=== PATIENT | female | born 1975 | race Caucasian/White ===

== ENCOUNTER 2017-02-25 06:37 | Day surgery (SDC) | payer OTHER ==
[2017-02-24 14:50] LABS: CHLORIDE,CL 104 mmol/L (98-110); SODIUM,NA 139 mmol/L (136-146)
[~2017-02-25 06:37] MED LIST: Sodium Chloride 0.9% 10 ML Syringe FLUSH PRN; Sodium Chloride 0.9% 2.5 ML Syringe FLUSH PRN; ceFAZolin 2 GM in Premix Bag 1 BAG IV ONE
[2017-02-25] MEDS: Lactated Ringers 1,000 ML IV SCH ×2 (06:47→10:45)
[2017-02-25] MEDS ORDERED: Propofol 200 MG/20 ML SDV ONE ×2 (07:09→09:07)
[2017-02-25] MEDS ORDERED: Midazolam 1 MG/ML 2 ML SDV ONE (07:09)
[2017-02-25] MEDS ORDERED: fentaNYL 100 MCG/2 ML SDV ONE (07:09)
[2017-02-25] MEDS ORDERED: Lidocaine 2% 5 ML SDV ONE (07:09)
[2017-02-25] MEDS ORDERED: Ondansetron 4 MG/2 ML SDV ONE ×2 (07:12→07:21)
[2017-02-25] MEDS ORDERED: Rocuronium 10 MG/ML 10 ML Syringe ONE (07:12)
[2017-02-25] MEDS ORDERED: Neostigmine Methylsulfate 1 MG/ML 5 ML Syringe ONE (07:12)
[2017-02-25] MEDS ORDERED: Ketorolac 30 MG/ML SDV ONE (07:12)
[2017-02-25] MEDS ORDERED: HYDROmorphone 2 MG/ML Syringe ONE (07:23)
[2017-02-25] MEDS ORDERED: Octyl 2-Cyanoacrylate 1 Tube ONE (07:25)
[2017-02-25] MEDS ORDERED: Fluorescein 5 ML Vial ONE (07:26)
[2017-02-25] MEDS ORDERED: Scopolamine 1.5 MG Transdermal Patch TRDERM PRN (07:27)
--- NOTE | 2017-02-25 07:27 | PCM.PREANE ---
Preanesthetic Assessment - Anesthesia/Transfusion/Family Hx Anesthesia History: Prior Anesthesia Without Reaction Family History of Anesthesia Reaction: No Transfusion History: No Prior Transfusion(s) - Review of Systems General: No Symptoms Pulmonary: No Symptoms Cardiovascular: No Symptoms Gastrointestinal: No Symptoms Neurological: No Symptoms Other: Reports: None - Physical Assessment NPO Status Date: 02/24/17 O2 Sat by Pulse Oximetry: 97 Respiratory Rate: 16 Vital Signs: Last Vital Signs Temp 36.2 C 02/25/17 06:42 Pulse 70 02/25/17 06:42 Resp 16 02/25/17 06:42 BP 122/60 02/25/17 06:42 Pulse Ox 97 02/25/17 06:42 Height: 1.6 m Weight: 93.44 kg ASA Class: 2 Mental Status: Alert & Oriented x3 Airway Class: Mallampati = 2 Dentition: Reports: Normal Dentition ROM/Head Extension: Full Lungs: Clear to Auscultation, Normal Respiratory Effort Cardiovascular: Regular Rate, Regular Rhythm - Lab Values: Laboratory Last Values WBC 5.38 K/uL (4.0-11.0) 02/24/17 14:16 RBC 4.78 M/uL (4.30-5.90) 02/24/17 14:16 Hgb 14.7 g/dL (12.0-16.0) 02/24/17 14:16 Hct 43.3 % (36.0-46.0) 02/24/17 14:16 MCV 90.6 fL (80.0-98.0) 02/24/17 14:16 MCH 30.8 pg (27.0-32.0) 02/24/17 14:16 MCHC 33.9 g/dL (31.0-37.0) 02/24/17 14:16 RDW Std Deviation 43.0 fl (28.0-62.0) 02/24/17 14:16 RDW Coeff of Elisa 13 % (11.0-15.0) 02/24/17 14:16 Plt Count 336 K/uL (150-400) 02/24/17 14:16 MPV 9.60 fL (7.40-12.00) 02/24/17 14:16 Nucleated RBC % 0.0 /100WBC 02/24/17 14:16 Nucleated RBCs # 0 K/uL 02/24/17 14:16 Sodium 139 mmol/L (136-146) 02/24/17 14:16 Potassium 4.1 mmol/L (3.5-5.1) 02/24/17 14:16 Chloride 104 mmol/L (98-110) 02/24/17 14:16 Carbon Dioxide 28 mmol/L (21-31) 02/24/17 14:16 BUN 6 mg/dL (6.0-23.0) 02/24/17 14:16 Creatinine 0.7 mg/dL (0.6-1.5) 02/24/17 14:16 Est Cr Clr Drug Dosing 84.84 mL/min 02/24/17 14:16 Estimated GFR (MDRD) > 60.0 ml/min 02/24/17 14:16 Glucose 93 mg/dL (60-110) 02/24/17 14:16 Calcium 9.5 mg/dL (8.8-10.8) 02/24/17 14:16 HCG, Qual NEGATIVE (NEG) 02/24/17 14:16 Blood Type O POSITIVE 02/24/17 14:16 Antibody Screen NEGATIVE 02/24/17 14:16 - Allergies Allergies/Adverse Reactions: Allergies Allergy/AdvReac Type Severity Reaction Status Date / Time codeine Allergy Hives Verified 02/25/17 07:00 erythromycin base Allergy Nausea Verified 02/25/17 07:01 nut - unspecified Allergy Anaphylactic Verified 02/25/17 07:01 Shock Penicillins Allergy Difficulty Verified 02/25/17 07:00 Breathing venom-honey bee Allergy Nausea and Verified 02/25/17 07:01 [bee venom (honey bee)] Vomiting - Anesthesia Plan Pre-Op Medication Ordered: Other (scop) - Acknowledgements Anesthesia Type Planned: General Anesthesia Pt an Appropriate Candidate for the Planned Anesthesia: Yes Alternatives and Risks of Anesthesia Discussed w Pt/Guardian: Yes Pt/Guardian Understands and Agrees with Anesthesia Plan: Yes PreAnesthesia Questionnaire HEENT History: Other HEENT History: has problems with vertigo, wears glasses Cardiovascular History: Reports: None Respiratory History: Reports: None Gastrointestinal History: Reports: GERD Genitourinary History: Reports: UTI, Recurrent LOAD DISPATCHER History: Reports: Musculoskeletal History: Reports: Back Pain, Chronic, Other (See Below) Other Musculoskeletal History: chronic back pain Neurological History: Reports: Vertigo Psychiatric History: Reports: Anxiety, Depression Endocrine/Metabolic History: Reports: Obesity/BMI 30+ Hematologic History: Reports: None Immunologic History: Reports: None Oncologic (Cancer) History: Reports: None Dermatologic History: Reports: None - Past Surgical History Head Surgeries/Procedures: Reports: None HEENT Surgical History: Reports: Tonsillectomy GI Surgical History: Reports: Cholecystectomy Female Surgical History: Reports: Section, D&C, Tubal Ligation Neurological Surgical History: Reports: C-Spine Other Neurological Surgeries/Procedures: hx neck surgery - SUBSTANCE USE Smoking Status *Q: Current Every Day Smoker Tobacco Use Within Last Twelve Months: Cigarettes Recreational Drug Use History: No - HOME MEDS Home Medications: Home Meds Acyclovir 800 mg PO ASDIRECTED PRN 09/05/15 [History] Cyclobenzaprine HCl 5 mg PO ASDIRECTED PRN 09/05/15 [History] EPINEPHrine [Epipen 2-Brown] 1 injection SUBCUT ASDIRECTED PRN 09/05/15 [History] Meclizine HCl [Antivert] 25 mg PO ASDIRECTED PRN 09/05/15 [History] Methocarbamol 500 mg PO ASDIRECTED PRN 09/05/15 [History] Venlafaxine HCl [Venlafaxine ER] 37.5 mg PO DAILY 09/05/15 [History] - CURRENT (IN HOUSE) MEDS Current Meds: Current Medications Lactated Ringer's (Ringers, Lactated) 1,000 mls @ 125 mls/hr IV ASDIRECTED LEVY Last Admin: 02/25/17 06:47 Dose: 125 mls/hr Sodium Chloride (Saline Flush) 10 ml FLUSH ASDIRECTED PRN PRN Reason: Keep Vein Open Sodium Chloride (Saline Flush) 2.5 ml FLUSH ASDIRECTED PRN PRN Reason: Keep Vein Open Discontinued Medications Fentanyl (Sublimaze) Confirm Administered Dose 300 mcg .ROUTE .STK-MED ONE Stop: 02/25/17 07:10 Glycopyrrolate () Confirm Administered Dose 1 mg .ROUTE .STK-MED ONE Stop: 02/25/17 07:13 Hydromorphone HCl (Dilaudid) Confirm Administered Dose 2 mg .ROUTE .STK-MED ONE Stop: 02/25/17 07:24 Cefazolin Sodium/Dextrose 2 gm (/ Premix) 50 mls @ 100 mls/hr IV ONETIME ONE Stop: 02/24/17 14:19 Cefazolin Sodium/Dextrose 2 gm (/ Premix) 50 mls @ 100 mls/hr IV ONETIME ONE Stop: 02/24/17 14:19 Ketorolac Tromethamine (Toradol) Confirm Administered Dose 30 mg .ROUTE .STK- MED ONE Stop: 02/25/17 07:13 Lidocaine (Xylocaine-Mpf 2%) Confirm Administered Dose 10 ml .ROUTE .STK-MED ONE Stop: 02/25/17 07:10 Midazolam HCl (Versed 1 Mg/Ml) Confirm Administered Dose 2 mg .ROUTE .STK-MED ONE Stop: 02/25/17 07:10 Neostigmine Methylsulfate (Neostigmine) Confirm Administered Dose 5 mg .ROUTE .STK-MED ONE Stop: 02/25/17 07:13 Ondansetron HCl (Zofran) Confirm Administered Dose 4 mg .ROUTE .STK-MED ONE Stop: 02/25/17 07:13 Ondansetron HCl (Zofran) Confirm Administered Dose 4 mg .ROUTE .STK-MED ONE Stop: 02/25/17 07:22 Propofol (Diprivan 20 Ml) Confirm Administered Dose 400 mg .ROUTE .STK-MED ONE Stop: 02/25/17 07:10 Rocuronium [place] (Zemuron) Confirm Administered Dose 100 mg .ROUTE .STK-MED ONE Stop: 02/25/17 07:13
[2017-02-25] MEDS ORDERED: Furosemide 40 MG/4 ML VIAL ONE (08:52)
[2017-02-25] MEDS ORDERED: Ketorolac 30 MG/ML SDV IVPUSH ONE (09:17)
[2017-02-25] MEDS ORDERED: Ketorolac 30 MG/ML SDV IVPUSH PRN (09:17)
[2017-02-25] MEDS ORDERED: Promethazine 25 MG/ML SDV IM PRN (09:17)
[2017-02-25] MEDS ORDERED: Morphine 4 MG/ML Syringe IVPUSH PRN (09:17)
[2017-02-25] MEDS ORDERED: Morphine 2 MG/ML Syringe IVPUSH PRN (09:17)
[2017-02-25] MEDS ORDERED: Acetaminophen/oxyCODONE 325-5 MG Tab PO PRN (09:17)
[2017-02-25] MEDS ORDERED: Ondansetron 4 MG/2 ML SDV IVPUSH PRN (09:17)
--- NOTE | 2017-02-25 09:23 | PCM.OPNOTE ---
- General Post-Op/Procedure Note Date of Surgery/Procedure: 02/25/17 Operative Procedure(s): Lysis of adhesion, TLH and Cysto Pre Op Diagnosis: Bleeding Post-Op Diagnosis: Same Anesthesia Technique: General ET Tube Primary Surgeon: Neno Nolasco Associate Curator: Peri Verdugo EBL in mLs: 100 Complications: None Condition: Good
[2017-02-25] MEDS ORDERED: fentaNYL 100 MCG/2 ML SDV IVPUSH PRN (09:37)
[2017-02-25] MEDS ORDERED: HYDROmorphone 2 MG/ML Syringe IVPUSH ONE (09:37)
--- NOTE | 2017-02-25 11:40 | PCM.POSTAN ---
POST ANESTHESIA ASSESSMENT - MENTAL STATUS Mental Status: Alert, Oriented - RESPIRATORY Respiratory Status: Respiratory Rate WNL, Airway Patent, O2 Saturation Stable - CARDIOVASCULAR CV Status: Pulse Rate WNL, Blood Pressure Stable - GASTROINTESTINAL GI Status: No Symptoms - POST OP HYDRATION Hydration Status: Adequate & Stable
[2017-02-25] MEDS: Acetaminophen/oxyCODONE 325-5 MG Tab PO PRN ×3 (13:55→22:39)
--- NOTE | 2017-02-25 13:56 | OR ---
SURGEON: Neno Nolasco MD DATE OF PROCEDURE: 02/25/2017 PREOPERATIVE DIAGNOSIS: Pelvic pain, menometrorrhagia. POSTOPERATIVE DIAGNOSES: Pelvic pain, menometrorrhagia. OPERATION PERFORMED: Multiple punctures diagnostic laparoscopy, lysis of adhesions, total laparoscopic hysterectomy, and cystoscopy. LONG TERM CARE PHLEBOTOMIST: DEA Collado ANESTHESIA: General endotracheal intubation, Dr. Potter and Mr. Valdez. ESTIMATED BLOOD LOSS: Less than 100 mL. COMPLICATIONS: None. FINDINGS: Uterus about 10-week size, pelvic adhesion from her previous section, and omental adhesions to the anterior part of the uterus and the fundus of the uterus from her previous section. INDICATION TO SURGERY: Bishop refer to the admit note. PROCEDURE IN DETAIL: The patient was brought to the OR, properly identified, and after taken time- out, and adequate level of general anesthesia, the patient was placed in lithotomy position with an access to the abdomen and the vagina. The patient was prepped and draped in a sterile fashion as usual. Kidd catheter was placed in the bladder and the Rahul surgical colpotomizer manipulator placed in the uterus in the manipulation and the appropriate balloons is inflated. Once these were done, then the operation shifted abdominally. Stab wound done beneath the umbilicus. The Veress needle was placed in the peritoneal cavity and that cavity insufflated with 3-1/2 L of carbon dioxide and then using 5 mm trocar and utilizing the Visiport technique, the peritoneal cavity entered beneath the umbilicus. Once we entered the umbilicus, inspection of the abdomen, the pelvic part of the abdomen, it shows omental adhesion to the top of the uterus and left side of the uterus from her previous section, pelvic adhesions between the bladder and the lower uterine segment of the uterus. The ovary was fleshly adhered to the pelvic sidewall on both sides. I placed the patient at this time in a steep Trendelenburg and then 10-12 trocar placed in the left iliac fossa and 5 mm trocar in the right iliac fossa under direct vision. The operation started by utilizing the KI Harmonic scapula to lyse all the adhesions from the omentum to the anterior part of the uterus and the left side restoring normal anatomy and obstructed vision to the pelvis. The process of the hysterectomy started by identifying the landmark of the pelvis and the superior pedicle is coagulated and transected from both sides. Using the KI Harmonic scapula, both ovaries were preserved and the remnant of the tube from her previous tubal ligation was included with the specimen. Then, the round ligament coagulated, transected in the same manner, and then the anterior leaf was a broad ligament, dissected downward medially with blunt and sharp and hydrodissection and meticulous dissection, I was able to separate the bladder completely and dissected it away from the operative field and the lower uterine segment and the internal ring of the manipulator was easily palpable at this time. Next, the uterine vessel was identified from both sides, coagulated, transected with KI-7 Harmonic Scalpel. Once these were done, a circular incision in the vaginal mucosa at edge of the manipulator was done, detaching the cervix from its attachment to the vagina and then the cervix, uterus, and remnant of the tube was removed vaginally. After that, pneumoperitoneum re-established by placing vaginal pack in the vagina, a thorough irrigation was done at this time, and there was no oozing and no bleeding from all the pedicle. I proceeded to close the vaginal cuff laparoscopically using 2-0 PDS interrupted sutures. While we were doing that, we asked the anesthesiologist to give the patient fluorescein. Prior to that, we inspected all the pedicles. There was no oozing, no bleeding, and then the abdomen was deflated, the patient placed supine, and the Kidd catheter was removed. Cystoscopy was performed. The bladder was intact. Both ureteric orifices were seen with the dye coming from both of them. Thus, the patency of both ureters verified. Satisfied with these findings, the instrument and hardware were retrieved from the abdomen and the vagina. The multiple laparoscopic incisions closed in layer. Instrument and sponge counts were correct. The patient tolerated the procedure well, went to recovery room in a stable general condition. KATHIA / MANA /[id number]
[2017-02-26] MEDS: Acetaminophen/oxyCODONE 325-5 MG Tab PO PRN (05:41)
[2017-02-26 06:14] LABS: CHLORIDE,CL 104 mmol/L (98-110); SODIUM,NA 136 mmol/L (136-146)
[2017-02-26 08:47] VITALS: BP 117/59
--- NOTE | 2017-02-26 09:41 | PCM.SURGPN ---
- General Info Date of Service: 02/26/17 Functional Status: Reports: Pain Controlled - Review of Systems General: Reports: No Symptoms HEENT: Reports: No Symptoms Pulmonary: Reports: No Symptoms Cardiovascular: Reports: No Symptoms Gastrointestinal: Reports: No Symptoms Genitourinary: Reports: No Symptoms Musculoskeletal: Reports: No Symptoms Skin: Reports: No Symptoms Neurological: Reports: No Symptoms Psychiatric: Reports: No Symptoms - Patient Data Vitals - Most Recent: Last Vital Signs Temp 36.7 C 02/26/17 08:46 Pulse 82 02/26/17 08:46 Resp 20 02/26/17 08:46 BP 117/59 L 02/26/17 08:46 Pulse Ox 95 02/26/17 08:46 Weight - Most Recent: 93.44 kg I&O - Last 24 Hours: Intake & Output 02/25/17 02/26/17 02/26/17 22:59 06:59 14:59 Intake Total 1050 1400 Output Total 700 2600 Balance 350 -1200 Lab Results Last 24 Hrs: Laboratory Results - last 24 hr 02/26/17 02/26/17 Range/Units 05:44 05:44 WBC 6.89 (4.0-11.0) K/uL RBC 4.16 L (4.30-5.90) M/uL Hgb 12.5 (12.0-16.0) g/dL Hct 38.0 (36.0-46.0) % MCV 91.3 (80.0-98.0) fL MCH 30.0 (27.0-32.0) pg MCHC 32.9 (31.0-37.0) g/dL RDW Std Deviation 44.4 (28.0-62.0) fl RDW Coeff of Elisa 13 (11.0-15.0) % Plt Count 272 (150-400) K/uL MPV 9.60 (7.40-12.00) fL Neut % (Auto) 54.6 (48.0-80.0) % Lymph % (Auto) 33.1 (16.0-40.0) % [place] % (Auto) 9.9 (0.0-15.0) % Eos % (Auto) 2.0 (0.0-7.0) % Baso % (Auto) 0.4 (0.0-1.5) % Neut # (Auto) 3.8 (1.4-5.7) K/uL Lymph # (Auto) 2.3 (0.6-2.4) K/uL [place] # (Auto) 0.7 (0.0-0.8) K/uL Eos # (Auto) 0.1 (0.0-0.7) K/uL Baso # (Auto) 0.0 (0.0-0.1) K/uL Nucleated RBC % 0.0 /100WBC Nucleated RBCs # 0 K/uL Sodium 136 (136-146) mmol/L Potassium 4.0 (3.5-5.1) mmol/L Chloride 104 (98-110) mmol/L Carbon Dioxide 26 (21-31) mmol/L BUN 5 L (6.0-23.0) mg/dL Creatinine 0.7 (0.6-1.5) mg/dL Est Cr Clr Drug Dosing 84.84 mL/min Estimated GFR (MDRD) > 60.0 ml/min Glucose 107 (60-110) mg/dL Calcium 9.0 (8.8-10.8) mg/dL Med Orders - Current: Current Medications Lactated Ringer's (Ringers, Lactated) 1,000 mls @ 125 mls/hr IV ASDIRECTED ON LICENSE OF [facility] Last Admin: 02/25/17 10:45 Dose: 125 mls/hr Ketorolac Tromethamine (Toradol) 30 mg IVPUSH Q6H PRN PRN Reason: Pain (severe 7-10) Stop: 03/02/17 09:17 Morphine Sulfate (Morphine) 2 mg IVPUSH Q2H PRN PRN Reason: Pain (severe 7-10) Morphine Sulfate (Morphine) 4 mg IVPUSH Q2H PRN PRN Reason: Pain (severe 7-10) Ondansetron HCl (Zofran) 4 mg IVPUSH Q6H PRN PRN Reason: Nausea/Vomiting Oxycodone/Acetaminophen (Percocet 325-5 Mg) 1 tab PO Q4H PRN PRN Reason: Pain (moderate 4-6) Last Admin: 02/26/17 05:41 Dose: 1 tab Oxycodone/Acetaminophen (Percocet 325-5 Mg) 2 tab PO Q4H PRN PRN Reason: Pain (moderate 4-6) Promethazine HCl (Phenergan) 25 mg IM Q6H PRN PRN Reason: Nausea/Vomiting Scopolamine (Transderm-Scop) 1.5 mg TRDERM Q72H PRN PRN Reason: Nausea/Vomiting Last Admin: 02/25/17 07:31 Dose: 1.5 mg Sodium Chloride (Saline Flush) 10 ml FLUSH ASDIRECTED PRN PRN Reason: Keep Vein Open Sodium Chloride (Saline Flush) 2.5 ml FLUSH ASDIRECTED PRN PRN Reason: Keep Vein Open Discontinued Medications Fentanyl (Sublimaze) Confirm Administered Dose 300 mcg .ROUTE .STK-MED ONE Stop: 02/25/17 07:10 Fentanyl (Sublimaze) 50 mcg IVPUSH Q5M PRN PRN Reason: Pain (severe 7-10) Stop: 02/26/17 09:37 Fluorescein Sodium (Ak-Fluor) Confirm Administered Dose 5 ml .ROUTE .STK-MED ONE Stop: 02/25/17 07:27 Furosemide (Lasix) Confirm Administered Dose 40 mg .ROUTE .STK-MED ONE Stop: 02/25/17 08:53 Glycopyrrolate () Confirm Administered Dose 1 mg .ROUTE .STK-MED ONE Stop: 02/25/17 07:13 Hydromorphone HCl (Dilaudid) Confirm Administered Dose 2 mg .ROUTE .STK-MED ONE Stop: 02/25/17 07:24 Hydromorphone HCl (Dilaudid) 0 mg IVPUSH ONETIME ONE Stop: 02/25/17 09:38 Last Admin: 02/25/17 10:29 Dose: Not Given Cefazolin Sodium/Dextrose 2 gm (/ Premix) 50 mls @ 100 mls/hr IV ONETIME ONE Stop: 02/24/17 14:19 Last Admin: 02/25/17 10:28 Dose: Not Given Cefazolin Sodium/Dextrose 2 gm (/ Premix) 50 mls @ 100 mls/hr IV ONETIME ONE Stop: 02/24/17 14:19 Last Admin: 02/25/17 10:28 Dose: Not Given Ketorolac Tromethamine (Toradol) Confirm Administered Dose 30 mg .ROUTE .STK- MED ONE Stop: 02/25/17 07:13 Ketorolac Tromethamine (Toradol) 30 mg IVPUSH ONETIME ONE Stop: 02/25/17 09:18 Last Admin: 02/25/17 10:28 Dose: Not Given Lidocaine (Xylocaine-Mpf 2%) Confirm Administered Dose 10 ml .ROUTE .STK-MED ONE Stop: 02/25/17 07:10 Midazolam HCl (Versed 1 Mg/Ml) Confirm Administered Dose 2 mg .ROUTE .STK-MED ONE Stop: 02/25/17 07:10 Neostigmine Methylsulfate (Neostigmine) Confirm Administered Dose 5 mg .ROUTE .STK-MED ONE Stop: 02/25/17 07:13 Octyl Cyanoacrylate (Dermabond Advance) Confirm Administered Dose 1 applic .ROUTE .STK-MED ONE Stop: 02/25/17 07:26 Ondansetron HCl (Zofran) Confirm Administered Dose 4 mg .ROUTE .STK-MED ONE Stop: 02/25/17 07:13 Ondansetron HCl (Zofran) Confirm Administered Dose 4 mg .ROUTE .STK-MED ONE Stop: 02/25/17 07:22 Propofol (Diprivan 20 Ml) Confirm Administered Dose 400 mg .ROUTE .STK-MED ONE Stop: 02/25/17 07:10 Propofol (Diprivan 20 Ml) Confirm Administered Dose 200 mg .ROUTE .STK-MED ONE Stop: 02/25/17 09:08 Rocuronium [place] (Zemuron) Confirm Administered Dose 100 mg .ROUTE .STK-MED ONE Stop: 02/25/17 07:13 - Exam Wound/Incisions: Healing Well General: Alert, Oriented HEENT: Pupils Equal Neck: Supple Lungs: Clear to Auscultation, Normal Respiratory Effort Cardiovascular: Regular Rate, Regular Rhythm GI/Abdominal Exam: Normal Bowel Sounds, Soft, Non-Tender, No Organomegaly, No Distention, No Abnormal Bruit, No Mass, Pelvis Stable Extremities: Normal Inspection, Normal Range of Motion, Non-Tender, No Pedal Edema, Normal Capillary Refill Skin: Warm, Dry, Intact Neurological: No New Focal Deficit Psy/Mental Status: Alert, Normal Affect, Normal Mood - Problem List Review Problem List Initiated/Reviewed/Updated: Yes - My Orders Last 24 Hours: Active Orders 24 hr Category Date Time Status Patient Status [ADT] Routine ADT 02/25/17 09:17 Active Notify Provider Vital Signs [RC] ASDIRECTED Care 02/25/17 09:17 Active RT Incentive Spirometry [RC] Q2HWA Care 02/25/17 09:17 Active Up With Assistance [RC] PER UNIT ROUTINE Care 02/25/17 09:17 Active Up ad Noreen [RC] PER UNIT ROUTINE Care 02/25/17 09:17 Active Vital Signs [RC] PER UNIT ROUTINE Care 02/25/17 09:17 Active Regular Diet [DIET] Diet 02/25/17 Lunch Active Acetaminophen/oxyCODONE [Percocet 325-5 MG] Med 02/25/17 09:17 Active 1 tab PO Q4H PRN Acetaminophen/oxyCODONE [Percocet 325-5 MG] Med 02/25/17 09:17 Active 2 tab PO Q4H PRN Ketorolac [Toradol] Med 02/25/17 09:17 Active 30 mg IVPUSH Q6H PRN Morphine Med 02/25/17 09:17 Active 2 mg IVPUSH Q2H PRN Morphine Med 02/25/17 09:17 Active 4 mg IVPUSH Q2H PRN Ondansetron [Zofran] Med 02/25/17 09:17 Active 4 mg IVPUSH Q6H PRN Promethazine [Phenergan] Med 02/25/17 09:17 Active 25 mg IM Q6H PRN Peripheral IV Discontinue [OM.PC] Routine Oth 02/25/17 09:17 Ordered Sequential Compression Device [OM.PC] Per Unit Routine Oth 02/25/17 09:17 Ordered Resuscitation Status Routine Resus Stat 02/25/17 09:17 Ordered Medication Orders Lactated Ringer's (Ringers, Lactated) 1,000 mls @ 125 mls/hr IV ASDIRECTED ON LICENSE OF [facility] Last Admin: 02/25/17 10:45 Dose: 125 mls/hr Infusion: 02/25/17 10:45 Dose: 125 mls/hr Admin: 02/25/17 06:47 Dose: 125 mls/hr Ketorolac Tromethamine (Toradol) 30 mg IVPUSH Q6H PRN PRN Reason: Pain (severe 7-10) Stop: 03/02/17 09:17 Morphine Sulfate (Morphine) 2 mg IVPUSH Q2H PRN PRN Reason: Pain (severe 7-10) Morphine Sulfate (Morphine) 4 mg IVPUSH Q2H PRN PRN Reason: Pain (severe 7-10) Ondansetron HCl (Zofran) 4 mg IVPUSH Q6H PRN PRN Reason: Nausea/Vomiting Oxycodone/Acetaminophen (Percocet 325-5 Mg) 1 tab PO Q4H PRN PRN Reason: Pain (moderate 4-6) Last Admin: 02/26/17 05:41 Dose: 1 tab Admin: 02/25/17 22:39 Dose: 1 tab Admin: 02/25/17 18:49 Dose: 1 tab Admin: 02/25/17 13:55 Dose: 1 tab Oxycodone/Acetaminophen (Percocet 325-5 Mg) 2 tab PO Q4H PRN PRN Reason: Pain (moderate 4-6) Promethazine HCl (Phenergan) 25 mg IM Q6H PRN PRN Reason: Nausea/Vomiting Scopolamine (Transderm-Scop) 1.5 mg TRDERM Q72H PRN PRN Reason: Nausea/Vomiting Last Admin: 02/25/17 07:31 Dose: 1.5 mg Sodium Chloride (Saline Flush) 10 ml FLUSH ASDIRECTED PRN PRN Reason: Keep Vein Open Sodium Chloride (Saline Flush) 2.5 ml FLUSH ASDIRECTED PRN PRN Reason: Keep Vein Open - Assessment Assessment (Free Text/Narrative):: Status post laparoscopic hysterectomy postoperative day #1 the patient is doing well no vaginal bleeding on regular diet she is voiding without any problem vital signs are stable and have lab work is within normal limits - Plan Plan (Free Text/Narrative):: Patient will be sent home today postvasectomy instruction is given to the patient prescription for Percocet 7.5/325 was given for postoperative pain the patient have an appointment to come to the office in 1 week for postoperative checkup
== END 2017-02-26 10:10 | disposition home or self-care (01) ==
LOC: MW.SDS 06:37 → UNDOADMOB 09:17 → MW.MS 09:17 → MW.SDS 02-26 10:10
PROVIDERS: ATTEND Obstetrics & Gynecology
DX: N87.9 Dysplasia of cervix uteri, unspecified (principal); K21.9 Gastro-esophageal reflux disease without esophagitis; J45.998 Other asthma; G89.29 Other chronic pain; M54.9 Dorsalgia, unspecified; E66.9 Obesity, unspecified; Z68.36 Body mass index [BMI] 36.0-36.9, adult; F41.9 Anxiety disorder, unspecified; F32.9 Major depressive disorder, single episode, unspecified; F17.210 Nicotine dependence, cigarettes, uncomplicated; Z88.0 Allergy status to penicillin; Z88.1 Allergy status to other antibiotic agents; Z88.5 Allergy status to narcotic agent; Z91.030 Bee allergy status; Z79.899 Other long term (current) drug therapy; Z90.49 Acquired absence of other specified parts of digestive tract; Z90.89 Acquired absence of other organs; Z98.51 Tubal ligation status; Z98.890 Other specified postprocedural states
CPT/HCPCS: 36415; 58570; 80048; 84703; 85025; 85027; 86850; 86900; 86901; A9270; J1170; J1885; J1940; J2250; J2405; J3010; J7120; 00840; 88307; J2704